=== PATIENT | male | born 1940 | race Caucasian/White ===

== ENCOUNTER → 2016-08-30 | Outpatient (CLI) | payer OTHER ==
[~2016-08-30] MED LIST: IOPAMIDOL (ISOVUE-300) 100 ML BTL IV ONE
== END ==
LOC: FIMAGING 10:28
PROVIDERS: ATTEND Specialist
DX: N40.1 Benign prostatic hyperplasia with lower urinary tract symptoms (principal); R39.89 Other symptoms and signs involving the genitourinary system; I71.4 Abdominal aortic aneurysm, without rupture; M51.26 Other intervertebral disc displacement, lumbar region; K57.32 Diverticulitis of large intestine without perforation or abscess without bleeding
CPT/HCPCS: 74178; Q9967

== ENCOUNTER → 2017-02-15 | Outpatient (CLI) | payer OTHER | LOC: FIMAGING 16:44 | PROVIDERS: ATTEND Physician Assistant Medical | DX: M51.37 Other intervertebral disc degeneration, lumbosacral region (principal); M51.36 Other intervertebral disc degeneration, lumbar region; M46.97 Unspecified inflammatory spondylopathy, lumbosacral region; M46.96 Unspecified inflammatory spondylopathy, lumbar region; M43.16 Spondylolisthesis, lumbar region ==

== ENCOUNTER 2017-03-01 15:44 | Emergency (ER) | payer OTHER ==
[2017-03-01 15:54] VITALS: TEMP 98.1
[2017-03-01] MEDS ORDERED: DEXAMETHASONE 4 MG/ML VIAL IVP ONE (17:10)
[2017-03-01] MEDS ORDERED: GABAPENTIN 300 MG CAP PO ONE (17:10)
[2017-03-01] MEDS ORDERED: DIAZEPAM 10 MG/2 ML SYR IVP ONE (17:10)
--- NOTE | 2017-03-01 17:13 | EDPHY ---
H & P Stated Complaint: low back pain/into r buttock r hip and leg/r foot numbness/ Time Seen by Provider: 03/01/17 17:12 HPI/ROS: HPI: This is a 76-year-old male who presents with Chief Complaint:low back pain/into r buttock r hip and leg/r foot numbness Location: Lower back/right hip Quality: Sharp pain Duration: 2-3 weeks Signs and Symptoms: No bleeding, + radiation, + numbness, no weakness, no tingling, no incontinence, + decreased range of motion Timing: Gradual onset, worsening Severity: Severe Context: Patient complains of lower back pain for the last 2-3 weeks accompanied by right hip pain and right ankle pain. He does have an old right ankle injury in the past. He has been followed outpatient by his primary care provider and STEFAN herrera who ordered a lumbar spine x-ray and lumbar spine CT scan on 02/15/2017; these studies were reviewed and show canal compromise moderate at L4-L5 with disc bulge and 3 mm anterior go listhesis. Canal compromise mild at L2-L3 and mild at L2 moderate at L3-L4 secondary to disc bulges. He was referred to Dr. Kessler in [place] who saw him and recommended physical therapy for 1st intervention and if this fails they would proceed with lumbar epidural steroid injections. He completed 1 day of physical therapy Sunday; able to fully participate as the pain was severe. Over the last couple days his right hip pain and right ankle pain have worsened. Yesterday he noted his right foot and ankle to be swollen. Over the last several days he has noticed numbness on the heel of his right foot as well as on the right midfoot including all 5 toes. he completed Medrol Dosepak 2 days ago, and is out of gabapentin/cyclobenzaprine. He tried taking Ultram yesterday x 2 but felt like he became lightheaded. In the past when he is taking Percocet and Vicodin he has had what appears to be near-syncope versus syncope episodes. He is very reluctant to try narcotic pain medications. He has a walker at home that he has been using to ambulate. Today he called his primary care provider who referred him to the emergency room to have his right hip, right ankle x- rays as well his is right lower extremity ultrasound to evaluate for DVT. He RT has an appointment scheduled with Dr. Kessler scheduled for March 21. 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 Surgical history: Cardiac stents Social history: Retired, . Lives in bilevel home. CONSTITUTIONAL: Pleasant elderly white male who appears to be in pain, awake and alert, no obvious distress HEENT: Atraumatic and normocephalic, PERRL, EOMI. Tympanic membranes clear. Nares patent. Oropharynx clear, no exudate and moist pink mucosa. No malocclusion. no dental trauma. Airway patent. No lymphadenopathy. NECK: supple, no midline tenderness, No meningismus. Cardiovascular: Normal S1/S2, regular rate, regular rhythm, without murmur rub or gallop. PULMONARY/CHEST: Symmetrical and nontender.Clear to auscultation bilaterally Good air movement. No accessory muscle usage. ABDOMEN: Soft, nondistended, nontender, no rebound, no guarding, no peritoneal signs, no masses or organomegaly. No CVAT. PELVIC: no pain with rocking BACK: Bilateral lumbar reproducible paraspinous muscle tenderness, no midline tenderness, no paraspinous spasm, deep tendon reflexes 2/2, + moderate pain with right straight leg raise. EXTREMITIES: 2/2 pulses, no deformities, no clubbing, no cyanosis or edema. Right hip moderate pain with internal rotation and external rotation, pain relieved with flexion. Right ankle no pitting edema; dorsiflexion 20, plantar flexion 20. No mottling noted. Decreased sensation on the right heel and top of right foot 1/2. NEUROLOGICAL: no focal neuro deficits. GCS 15. SKIN: Warm and dry, no erythema. no rash. Good capillary refill. Source: Patient, Family Exam Limitations: No limitations - Personal History Current Tetanus/Diphtheria Vaccine: Yes - Medical/Surgical History Hx Asthma: No Hx Chronic Respiratory Disease: No Hx Diabetes: No Hx Cardiac Disease: Yes Hx Renal Disease: No Hx Cirrhosis: No Hx Alcoholism: No Hx HIV/AIDS: No Hx Splenectomy or Spleen Trauma: No Other PMH: pacemaker/stents/disc prob in back - Social History Smoking Status: Never smoked Constitutional: Initial Vital Signs Temperature (C) 36.7 C 03/01/17 15:51 Heart Rate 75 03/01/17 15:51 Respiratory Rate 17 03/01/17 15:51 Blood Pressure 163/88 H 03/01/17 15:51 O2 Sat (%) 95 03/01/17 15:51 O2 Delivery Mode Room Air Allergies/Adverse Reactions: acetaminophen [From Vicodin] Allergy (Unknown, Verified 03/01/17 15:50) Other-Enter Comments hydrocodone bitartrate [From Vicodin] Allergy (Unknown, Verified 03/01/17 15:50) PASS OUT latex [Latex] Allergy (Unknown, Verified 03/01/17 15:50) Rash Qhpfgks-Qyj-Hhm Reductase Inhibitor Allergy (Unknown, Verified 03/01/17 15:50) Other-Enter Comments erythromycin base [Erythromycin Base] Allergy (Verified 03/01/17 15:50) Swelling/neck,face,throat nitroglycerin Allergy (Verified 03/01/17 15:50) Anaphylaxis Home Medications: Medication Instructions Recorded Aspirin [Aspirin 81mg (OTC)] 81 mg PO DAILY 11/26/12 Cyclobenzaprine 03/01/17 Diazepam [Valium 2 MG (*)] 2 mg PO Q8 PRN #12 tab 03/01/17 GABAPENTIN 03/01/17 Gabapentin [Neurontin 300 MG (*)] 300 mg PO HS #10 cap 03/01/17 Prednisone 03/01/17 traMADol 03/01/17 Medical Decision Making - Diagnostics Imaging Results: Imaging Impressions Ankle X-Ray 03/01/17 17:11 Impression: Normal study. RIGHT ANKLE (3 Views, at 6:34 PM): Bone mineralization is preserved. There is no acute fracture, dislocation, or mortise disruption. There is a faint well- corticated ossific density distal to the lateral malleolus, which may represent an old avulsion injury. There is minimal degenerative spurring along the undersurface of the medial malleolus. There may be partial osseous fusion at the distal tibiofibular articulation. There is some mild subcutaneous edema in the fat planes of the calf. There is a degenerative enthesophyte along the posterior calcaneus, where the Achilles tendon inserts. There is no ankle joint effusion. The subtalar joint is normal. Impression: Minor degenerative changes, with no acute osseous abnormality. Extremity Venous Study 03/01/17 17:11 Impression: There is no sonographic evidence of deep or superficial vein thrombosis in the right lower extremity. Findings were discussed with Pebbles Thomas PA-C at 18:05, on 03/01/2017. Hip X-Ray 03/01/17 17:11 Impression: Normal study. RIGHT ANKLE (3 Views, at 6:34 PM): Bone mineralization is preserved. There is no acute fracture, dislocation, or mortise disruption. There is a faint well- corticated ossific density distal to the lateral malleolus, which may represent an old avulsion injury. There is minimal degenerative spurring along the undersurface of the medial malleolus. There may be partial osseous fusion at the distal tibiofibular articulation. There is some mild subcutaneous edema in the fat planes of the calf. There is a degenerative enthesophyte along the posterior calcaneus, where the Achilles tendon inserts. There is no ankle joint effusion. The subtalar joint is normal. Impression: Minor degenerative changes, with no acute osseous abnormality. ED Course/Re-evaluation: Right hip x-ray, right ankle x-ray, right lower extremity ultrasound, IV medications ordered Given IV Decadron, IV Valium, p.o. gabapentin with moderate relief of pain 1805: Called by radiologist Dr. Greenwood who advised lower extremity ultrasound does not show any deep venous thrombosis. X-rays reviewed by mesh self and hip x-ray does not show any significant get degenerative changes; avascular necrosis. Ankle x-ray shows mild degenerative changes; ? old avulsion injury 1914: Spoke with Dr. Kessler who advises do not refill or extend the Medrol Dosepak. He is okay with a prescription for Valium and gabapentin. He advises to have the patient call his office in the a.m. for an appointment within 7 days. No signs of neurovascular compromise/tenting of skin/compartment syndrome/ extremities and joints examined above and below area of concern and are neurovascularly intact. Differential Diagnosis: Back pain including but not limited to muscular pain, herniated disc, spine fracture, intra-abdominal causes and urinary tract infection. - Data Points Medications Given: Discontinued Medications Dexamethasone (Decadron Injection) 8 mg IVP EDNOW ONE Stop: 03/01/17 17:11 Last Admin: 03/01/17 17:37 Dose: 8 mg Diazepam (Valium Injection) 5 mg IVP EDNOW ONE Stop: 03/01/17 17:11 Last Admin: 03/01/17 17:36 Dose: 5 mg Gabapentin (Neurontin) 600 mg PO EDNOW ONE Stop: 03/01/17 17:11 Last Admin: 03/01/17 17:37 Dose: 600 mg Departure - Departure Disposition: Home, Routine, Self-Care Clinical Impression: Sciatica of right side, Lumbar degenerative disc disease, Lumbar radiculopathy , right Condition: Fair Instructions: Sciatica (ED), Lumbar Radiculopathy (ED) Additional Instructions: Rest as much as possible. Use a walker to aid in ambulation. Take Valium as needed for spasms/pain. Take gabapentin at bedtime. Call Dr. Kessler office in the a.m. and advised Dr. Kessler wants to see you within 5-7 days. You are not to attend your physical therapy appointment until you worst re- evaluated by Dr. Kessler. Referrals: MAGDALENO JAMISON [Primary Care Provider] - As per Instructions Gonzalo Kessler MD [Medical Doctor] - As per Instructions Prescriptions: Diazepam [Valium 2 MG (*)] 2 mg PO Q8 PRN #12 tab PRN Reason: Spasms Gabapentin [Neurontin 300 MG (*)] 300 mg PO HS #10 cap
[2017-03-01 18:04] VITALS: RESP 16
[2017-03-01 18:47] VITALS: BP 145/82
[2017-03-01 19:36] VITALS: PULSE 76; O2SAT 94
== END 2017-03-01 19:50 | disposition home or self-care (01) ==
DX: M54.41 Lumbago with sciatica, right side (principal); M54.16 Radiculopathy, lumbar region; M51.36 Other intervertebral disc degeneration, lumbar region; I10 Essential (primary) hypertension; I25.10 Atherosclerotic heart disease of native coronary artery without angina pectoris; Z79.82 Long term (current) use of aspirin; Z95.0 Presence of cardiac pacemaker; Z95.5 Presence of coronary angioplasty implant and graft; Z91.040 Latex allergy status
CPT/HCPCS: 73502; 73610; 93971; 96374; 96375; 99285; J1100

== ENCOUNTER → 2017-03-15 | Outpatient (CLI) | payer OTHER ==
[~2017-03-15] MED LIST changes: -IOPAMIDOL (ISOVUE-300) 100 ML BTL IV ONE; +IOPAMIDOL (ISOVUE-M 200) 20 ML VIAL ONE; +LIDOCAINE 1% 300 MG/30 ML SDV ONE
== END ==
LOC: FIMAGING 09:19
PROVIDERS: ATTEND Neurological Surgery
PROC: 3E0R3KZ Introduction of Other Diagnostic Substance into Spinal Canal, Percutaneous Approach (ICD-10-PCS; principal; 2017-03-15)
DX: M51.26 Other intervertebral disc displacement, lumbar region (principal); M89.38 Hypertrophy of bone, other site; M48.061 Spinal stenosis, lumbar region without neurogenic claudication; M99.73 Connective tissue and disc stenosis of intervertebral foramina of lumbar region
CPT/HCPCS: 62302; 72132; 72265; Q9966

== ENCOUNTER 2017-04-12 09:43 | Emergency (ER) | payer OTHER ==
[2017-04-12 09:52] VITALS: RESP 18
--- NOTE | 2017-04-12 10:10 | EDPHY ---
H & P Stated Complaint: Injury to right shoulder last night. Time Seen by Provider: 04/12/17 10:06 HPI/ROS: CHIEF COMPLAINT: Right shoulder pain injury HISTORY OF PRESENT ILLNESS: 76-year-old male arrives via private vehicle complaining of acute right shoulder pain after he was building a shower chair last evening, twisting the pieces together and felt immediate pain and a "pop sensation ". He has a history of ongoing sciatica, row in the right lower extremity, followed by Dr. wen, has been ambulating exclusively with a walker. Because of his acute right shoulder injury he is no longer able to walk with his walker and bear weight on the right shoulder therefore. PRIMARY CARE PROVIDER: REVIEW OF SYSTEMS: A ten point review of systems was performed and is negative with the exception of the items mentioned in the HPI PAST MEDICAL/SURGICAL HISTORY: no anticoagulant use, cardiac stenting. Pacemaker. Chronic right lower extremity sciatica. SOCIAL HISTORY: Lives with his in a bilevel home PHYSICAL EXAM 1) GENERAL: Well-developed, well-nourished, alert and oriented. Appears uncomfortable specially when asked to move his right shoulder Answering questions appropriately. 2) HEAD: Normocephalic, atraumatic 3) HEENT: Pupils equal, round, reactive to light bilaterally. 4) NECK: No cervical collar is on. Posterior cervical spine is nontender, no stepoff, no effusion. Full range of motion which does not elicit any midline cervical spine pain, no posterior midline tenderness, no step-off. 5) LUNGS: Clear to auscultation bilaterally, no wheezes, no rhonchi, no retractions. No obvious signs of trauma. No chest wall pain. No flaring, no grunting. Moving symmetrically. No crepitus. 6) HEART: Regular rate and rhythm, 7) ABDOMEN: No guarding, no rebound, no focal tenderness, no peritoneal signs, no signs of trauma, no ecchymosis 8) MUSCULOSKELETAL: Right upper extremity: No visible signs of trauma, tender to palpation anterolateral aspect of shoulder reproducible with palpation and range of motion. Normal coloration temperature. No effusion. Right upper extremity has normal neurovascular examination. Otherwise, Moving all extremities, no focal areas of tenderness, no obvious trauma. 9) BACK: No midline vertebral tenderness, no fluctuance, no step-off, no obvious trauma, no visual or palpable abnormality. 10) SKIN: No laceration. No abrasion DIFFERENTIAL DIAGNOSIS: [in no particular include but limited to fracture, dislocation, sprain, strain - Personal History Current Tetanus Diphtheria and Acellular Pertussis (TDAP): Unsure - Medical/Surgical History Hx Asthma: No Hx Chronic Respiratory Disease: No Hx Diabetes: No Hx Cardiac Disease: Yes Hx Renal Disease: No Hx Cirrhosis: No Hx Alcoholism: No Hx HIV/AIDS: No Hx Splenectomy or Spleen Trauma: No Other PMH: pacemaker/stents/disc prob in back - Social History Smoking Status: Never smoked Constitutional: Initial Vital Signs Temperature (C) 36.4 C 04/12/17 09:45 Heart Rate 65 04/12/17 09:45 Respiratory Rate 18 04/12/17 09:45 Blood Pressure 143/77 H 04/12/17 09:45 O2 Sat (%) 93 04/12/17 09:45 O2 Delivery Mode Room Air Allergies/Adverse Reactions: acetaminophen [From Vicodin] Allergy (Unknown, Verified 03/01/17 15:50) Other-Enter Comments hydrocodone bitartrate [From Vicodin] Allergy (Unknown, Verified 03/01/17 15:50) PASS OUT latex [Latex] Allergy (Unknown, Verified 03/01/17 15:50) Rash Jxkyzpi-Scp-Cyh Reductase Inhibitor Allergy (Unknown, Verified 03/01/17 15:50) Other-Enter Comments erythromycin base [Erythromycin Base] Allergy (Verified 03/01/17 15:50) Swelling/neck,face,throat nitroglycerin Allergy (Verified 03/01/17 15:50) Anaphylaxis Home Medications: Medication Instructions Recorded Aspirin [Aspirin 81mg (OTC)] 81 mg PO DAILY 11/26/12 Cyclobenzaprine 03/01/17 Diazepam [Valium 2 MG (*)] 2 mg PO Q8 PRN #12 tab 03/01/17 GABAPENTIN 03/01/17 Gabapentin [Neurontin 300 MG (*)] 300 mg PO HS #10 cap 03/01/17 Diazepam [Valium 5 MG (*)] 2.5 mg PO TID PRN #15 tab 04/12/17 Medical Decision Making - Diagnostics Imaging Results: Imaging Impressions Shoulder X-Ray 04/12/17 09:54 Impression: 1. No acute fracture. 2. Osteoarthritis and probable impingement upon the rotator cuff. Images reviewed by myself ED Course/Re-evaluation: 10:50 a.m.: Consultation with the ER shoe parts caser. No evidence of fracture dislocation on x-ray. Doubt septic arthritis. We discussed limitations of x- ray. Recommend orthopedic follow-up as he may necessitate further outpatient imaging. 1:45 a.m.: The shoe parts caser has spent significant time consulting with this patient and spoke with myself. Have offered admission for physical therapy, pain management however he would like to be discharged home, feels comfortable being discharged home. He has been given a sling, he will follow up with Dr. Kirk Puente his orthopedic surgeon for his shoulder injury. He follow up with Dr. Lukasz wen for his chronic radiculopathy in the right lower extremity. He requests Valium as his analgesics of choice. Usual customary benzodiazepine precautions instructions provided. He has been informed that he is more than welcome to return to the ER at any point for re-evaluation or fetid not feel safe at home.Care of patient under supervision of secondary supervising physician Dr Sanches with whom I discussed case . - Data Points Medications Given: Discontinued Medications Cyclobenzaprine HCl (Flexeril) 5 mg PO EDNOW ONE Stop: 04/12/17 10:51 Last Admin: 04/12/17 10:54 Dose: 5 mg Diazepam (Valium Injection) 5 mg IVP EDNOW ONE Stop: 04/12/17 10:47 Last Admin: 04/12/17 10:59 Dose: Not Given Diazepam (Valium) 2 mg PO EDNOW ONE Stop: 04/12/17 10:51 Last Admin: 04/12/17 11:12 Dose: 2 mg Ketorolac Tromethamine (Toradol) 30 mg IVP EDNOW ONE Stop: 04/12/17 10:46 Last Admin: 04/12/17 10:59 Dose: Not Given Departure - Departure Disposition: Home, Routine, Self-Care Clinical Impression: Lumbar back pain with radiculopathy affecting right lower extremity Sprain of right shoulder Qualifiers: Encounter type: initial encounter Shoulder sprain type: unspecified sprain Qualified Code(s): S43.401A - Unspecified sprain of right shoulder joint, initial encounter Condition: Good Instructions: Shoulder Sprain (ED) Additional Instructions: If at any point you do not feel safe at home or do not feel you are able to care for yourself return to the ER for re-evaluation. Case Management: Carli Joseph PT has been contacted regarding your out patient physical therapy. They have referred you to [facility] for home health Physical and Occupational Therapy: [facility] will be contacting you to schedule an initial home health visit for tomorrow 04/13/17. You may call them at with any questions. You DO NOT need to call them to schedule your home health visits. They will contact you for scheduling Referrals: Gonzalo Kessler MD [Medical Doctor] - 2-3 days, call for appt. Kirk Puente MD [Medical Doctor] - 2-3 days, call for appt. Prescriptions: Diazepam [Valium 5 MG (*)] 2.5 mg PO TID PRN #15 tab PRN Reason: Spasms
[2017-04-12] MEDS ORDERED: KETOROLAC 30 MG/1 ML SDV IVP ONE (10:45)
[2017-04-12] MEDS ORDERED: DIAZEPAM 10 MG/2 ML SYR IVP ONE (10:46)
[2017-04-12] MEDS ORDERED: CYCLOBENZAPRINE 10 MG TAB PO ONE (10:50)
[2017-04-12] MEDS ORDERED: DIAZEPAM 2 MG TAB PO ONE (10:50)
[2017-04-12 12:23] VITALS: BP 132/60; PULSE 68; TEMP 98.1; O2SAT 95
--- NOTE | 2017-04-12 16:18 | ASMTCMCOM ---
CM Note CM Note Notes: Patient presents to the ER with his with c/o R shoulder pain s/p twisting it last night while trying to put together a shower chair. Patient is currently seeing Dr. Poe for a chronic back injury and is current with [facility] in [place]. Elvis lives in a bi-level home, uses a walker as needed to ambulate due to his back pain and "sciatica" and is concerned about his activity level at home now that his shoulder is injured I discussed potential options with patient and his , for HH PT/OT vs SNF. Patient is reluctant to consider SNF due to concerns about being comfortable with sleeping, etc. Patient has a couch and recliner at home that he has adjusted to for sitting/sleeping and this is his biggest concern. I expressed my concerns for safety in regard to ambulating up and down stairs and whether patient would be able to stay on 1 level as much as possible. Patient states that he can do this other than going up/down to shower. After spending quite some time with patient, he feels that going home with HH support is his preffered option. I have reached out to [facility] and received a referral for [facility] . Referral has been faxed and patient is accepted for HH PT/OT services to start tomorrow. Patient and his are in agreement of this plan and would like to try and manage at home with supportive care. Chay Ortiz PT will suspend OP PT visits at this time and follow along with HH PT/OT services for follow up Date Signed: 04/12/2017 04:17 PM Electronically Signed By:Perri Centeno RN
== END 2017-04-12 12:23 | disposition home or self-care (01) ==
DX: S43.401A Unspecified sprain of right shoulder joint, initial encounter (principal); X50.9XXA Other and unspecified overexertion or strenuous movements or postures, initial encounter; Y93.89 Activity, other specified; Z95.0 Presence of cardiac pacemaker; Z91.040 Latex allergy status; Z79.82 Long term (current) use of aspirin; M54.16 Radiculopathy, lumbar region
CPT/HCPCS: 73030; 99283; A4565

== ENCOUNTER → 2017-04-19 | Outpatient (CLI) | payer OTHER | LOC: FIMAGING 13:05 | PROVIDERS: ATTEND Physician Assistant | DX: M43.16 Spondylolisthesis, lumbar region (principal); I71.4 Abdominal aortic aneurysm, without rupture ==

== ENCOUNTER 2017-05-22 10:10 | Inpatient (IN) | payer OTHER ==
[~2017-05-22 10:10] MED LIST changes: +ACETAMINOPHEN 500 MG TAB PO ONE; -IOPAMIDOL (ISOVUE-M 200) 20 ML VIAL ONE; -LIDOCAINE 1% 300 MG/30 ML SDV ONE; +PREGABALIN 75 MG CAP PO ONE; +ceFAZolin 2 GM/DEXTROSE 100 ML IV ONE
[2017-05-22] MEDS ORDERED: CHLORHEXIDINE GLUC HIBICLENS 118 ML BTL TP ONE (11:00)
[2017-05-22] MEDS ORDERED: BUPIVACAINE 0.25% 30 ML SDV ONE (11:00)
[2017-05-22] MEDS ORDERED: BACITRACIN ZINC 14.2 GM OINTTUBE TP ONE (11:00)
[2017-05-22] MEDS ORDERED: THROMBIN (BOVINE) 5,000 UNIT VIAL TP ONE (11:01)
[2017-05-22] MEDS ORDERED: BACITRACIN 50,000 UNITS/10 ML SYR IRR ONE (11:01)
[2017-05-22] MEDS ORDERED: LR 1,000 ML IV ONE (11:05)
--- NOTE | 2017-05-22 11:16 | PDHPUP ---
History & Physical Update H&P update statement: This history and physical update is based on an assessment of the patient which was completed after admission or registration (within 24 hours), but prior to the surgery/procedure. Pt continues to have right leg pain, primarily in the lateral ankle. He denies any weakness. The pain can radiate up into his calf at times. He also copmlains of some right sided pain just below his ribs that he thinks is an aggravated chronic pain from sitting in the chair and being too immobile of late. H&P update: no change in patient's condition since H&P completed
[2017-05-22] MEDS ORDERED: ceFAZolin 2 GM/SWFI 20 ML SYR IVP ONE (11:22)
[2017-05-22] MEDS ORDERED: ACETAMINOPHEN 500 MG TAB ONE (11:22)
[2017-05-22] MEDS ORDERED: PREGABALIN 75 MG CAP PO ONE (11:45)
--- NOTE | 2017-05-22 13:29 | PDANEPAE ---
ANE Past Medical History - Cardiovascular History Hx Hypertension: No Hx Arrhythmias: Yes Hx Chest Pain: No Hx Coronary Artery / Peripheral Vascular Disease: Yes Hx CHF / Valvular Disease: No Hx Palpitations: No Cardiovascular History Comment: bradycardia - Pulmonary History Hx COPD: No Hx Asthma/Reactive Airway Disease: Yes Hx Recent Upper Respiratory Infection: No Hx Oxygen in Use at Home: No Hx Sleep Apnea: No Sleep Apnea Screening Result - Last Documented: Positive Pulmonary History Comment: mild - Neurologic History Hx Cerebrovascular Accident: No Hx Seizures: No Hx Dementia: No - Endocrine History Hx Diabetes: No Hypothyroid: No Hyperthyroid: No Obesity: no Endocrine History Comment: pt has hypoglycemic issues - Renal History Hx Renal Disorders: No - Liver History Hx Hepatic Disorders: No - Neurological & Psychiatric Hx Hx Neurological and Psychiatric Disorders: Yes - Cancer History Hx Cancer: No Cancer History Comment: skin cancer - Congenital Disorder History Hx Congenital Disorders: No - GI History GERD: no Hx Gastrointestinal Disorders: Yes Gastrointestinal History Comment: mild IBS - Other Health History Other Health History: none - Chronic Pain History Chronic Pain: Yes (sciatica) - Surgical History Prior Surgeries: none ANE Review of Systems Review of Systems: - Exercise capacity METS (RN): 2 METS - Pacemaker Pacemaker Type: Bi-Ventricular Pacemaker Silo Worker: [employer] Pacemaker Model: EVIA DR-T Pacemaker Mode: DDD Pacemaker Set Rate: 60 Date Pacemaker Last Checked: 05/22/2017 ANE Patient History - Allergies Allergies/Adverse Reactions: erythromycin base [Erythromycin Base] Allergy (Severe, Verified 05/14/17 12:52) Swelling/neck,face,throat hydrocodone bitartrate [From Vicodin] Allergy (Severe, Verified 05/14/17 12:52) PASS OUT nitroglycerin Allergy (Severe, Verified 05/14/17 12:52) Anaphylaxis gabapentin Allergy (Intermediate, Verified 05/14/17 12:55) Other-Enter Comments latex [Latex] Allergy (Intermediate, Verified 05/14/17 12:52) Rash oxycodone [From Percocet] Allergy (Intermediate, Verified 05/14/17 12:55) Other-Enter Comments Isjpyjm-Feq-Udh Reductase Inhibitor Allergy (Intermediate, Verified 05/14/17 12: 52) Other-Enter Comments tramadol Allergy (Mild, Verified 05/14/17 12:55) Vomiting - Home Medications Home Medications: Aspirin [Aspirin 81mg (OTC)] 81 mg PO DAILY PRN 11/26/12 [Last Taken 05/19/17] Diazepam [Valium 5 MG (*)] 2.5 - 5 mg PO BID PRN 05/08/17 [Last Taken 05/22/17 07:00] Ibuprofen [Motrin (*)] 200 mg PO Q4-6PRN PRN 05/08/17 [Last Taken 05/15/17] ACETAMINOPHEN 500 05/22/17 [Last Taken 05/22/17 06:00] - NPO status NPO Since - Liquids (Date): 05/21/17 NPO Since - Liquids (Time): 23:15 NPO Since - Solids (Date): 05/21/17 NPO Since - Solids (Time): 23:00 - Anes Hx Anes Hx: no prior problems - Smoking Hx Smoking Status: Never smoked Marijuana use: No - Family Anes Hx Family Anes Hx: none Family Hx Anesthesia Complications: none ANE Labs/Vital Signs - Vital Signs Blood Pressure: 132/83 Heart Rate: 64 Respiratory Rate: 14 O2 Sat (%): 90 Height: 172.72 cm Weight: 86.183 kg ANE Physical Exam - Airway Neck exam: FROM Mallampati Score: Class 3 Mouth exam: normal dental/mouth exam - Pulmonary Pulmonary: no respiratory distress, no rales or rhonchi, clear to auscultation - Cardiovascular Cardiovascular: regular rate and rhythym, no murmur, rub, or gallop - ASA Status ASA Status: III ANE Anesthesia Plan Anesthesia Plan: general endotracheal anesthesia
[2017-05-22] MEDS ORDERED: PROPOFOL 200 MG/20 ML VIAL ONE (13:57)
[2017-05-22] MEDS ORDERED: REMIFENTANIL HCL 1 MG VIAL ONE (13:57)
[2017-05-22] MEDS ORDERED: fentaNYL 100 MCG/2 ML INJ ONE ×3 (13:57→18:31)
[2017-05-22] MEDS ORDERED: PROPOFOL/EMULSION 500 MG/50 ML BOTTLE IV ONE (13:57)
[2017-05-22] MEDS ORDERED: ROCURONIUM 50 MG/5 ML VIAL ONE ×2 (13:58→14:38)
[2017-05-22] MEDS ORDERED: LIDOCAINE 2% 5 ML SDV ONE (13:59)
[2017-05-22] MEDS ORDERED: DEXAMETHASONE 4 MG/ML VIAL ONE (13:59)
[2017-05-22] MEDS ORDERED: PHENYLEPHRINE HCL 100 MCG/ML SYR ONE (14:03)
[2017-05-22] MEDS ORDERED: SURGIFLO MATRIX KIT WITH THROMBIN 8ml TP ONE (14:21)
[2017-05-22] MEDS ORDERED: ACETAMINOPHEN 500 MG TAB PO PRN (14:54)
[2017-05-22] MEDS ORDERED: ALBUTEROL 3 ML DEYVIAL IH PRN (14:54)
[2017-05-22] MEDS ORDERED: LR 500 ML IV PRN (14:54)
[2017-05-22] MEDS ORDERED: PROMETHAZINE HCL 25 MG/ML INJ IVP PRN (14:54)
[2017-05-22] MEDS ORDERED: NALOXONE HCL 0.4 MG/ML INJ IVP PRN (14:54)
[2017-05-22] MEDS ORDERED: ONDANSETRON 4 MG/2 ML VIAL IVP PRN ×2 (14:54→16:39)
[2017-05-22] MEDS ORDERED: BUPIVACAINE 0.5% 30 ML SDV ONE (15:54)
[2017-05-22] MEDS ORDERED: SUGAMMADEX SODIUM 500 MG/5 ML VIAL IVP ONE (16:07)
[2017-05-22] MEDS ORDERED: KETOROLAC 30 MG/1 ML SDV ONE (16:10)
--- NOTE | 2017-05-22 16:37 | POSTOPPROG ---
Post Op Note Date of Operation: 05/22/17 Surgeon: Lele Lyn Helper/Driver: Lele Lyn Anesthesiologist: pasha Tobin Anesthesia: GET(General Endotracheal) Pre-op Diagnosis: lumbar stenosis with radiculopathy Post-op Diagnosis: same Indication: irretractable pain and inability to bear weight Procedure: L45 laminectomy and Right sided JOSE EDUARDO Findings: HNP Inf/Abcess present in the surg proc area at time of surgery?: No Depth: Organ Space EBL: Minimal Drains: Marek [place]
[2017-05-22] MEDS ORDERED: ONDANSETRON DISINTEGRATING 4 MG TAB PO PRN (16:39)
[2017-05-22] MEDS ORDERED: POLYETHYLENE GLYCOL 3350 17 GM PKT PO PRN (16:39)
[2017-05-22] MEDS ORDERED: HYDROmorphone HCL/NS/PF 0.4 MG/2 ML SYR IVP PRN (16:39)
[2017-05-22] MEDS ORDERED: diphenhydrAMINE 25 MG CAP PO PRN (16:39)
[2017-05-22] MEDS ORDERED: BISACODYL 10 MG SUPP PR PRN (16:39)
[2017-05-22] MEDS ORDERED: MAGNESIUM HYDROXIDE 30 ML UDCUP PO PRN (16:39)
[2017-05-22] MEDS ORDERED: LACTULOSE 20 GM/30 ML UDCUP PO PRN (16:39)
[2017-05-22] MEDS ORDERED: NS W/ 20 KCl/L 1,000 ML IV SCH (16:45)
[2017-05-22] MEDS ORDERED: DIAZEPAM 5 MG TAB PO PRN (16:49)
--- NOTE | 2017-05-22 16:58 | NEUSURGPN ---
Date of Surgery: 05/22/17 Post Op Day: 0 Assessment/Plan: 76M s/p L45 laminectomy and R sided JOSE EDUARDO who has been 10+ weeks in a debilitated state d/t pain -admit to floor -advance diet as tolerated -pain control, minimize narcotics if possible -PT/OT to eval and treat; educate and make disposition recommendations -JPx1 likely until discharge unless output minimal -DVT ppx -TEDs SCD's, lovenox POD#1 -please call NS with any questions/concerns. Dw Dr. Kessler Subjective: groggy, post anesthesia, no c/o pain Objective: NAD, VSS Alert cnii-xii grossly intact EOMI, PEARLA MAEx4, 5/= SILT Incision c/d/i, dressed JPx1 - Physician Discussed Patient with : [facility] Physical Exam - Vitals, I&O, Labs I and O 05/21/17 05/22/17 05/23/17 05:59 05:59 05:59 Weight 86.183 kg Vital Signs Temp Pulse Resp BP Pulse Ox 36.9 C 64 11 L 148/93 H 98 05/22/17 10:48 05/22/17 14:53 05/22/17 16:46 05/22/17 16:46 05/22/17 16:46 ICD10 Worksheet Patient Problems: Problems Problem Status Onset Lumbar spinal stenosis Acute - ICD10 Problem Qualifiers (1) Lumbar spinal stenosis Qualifiers: Neurogenic claudication status: unspecified Qualified Code(s): M48.061 - Spinal stenosis, lumbar region without neurogenic claudication
[2017-05-22] MEDS ORDERED: ONDANSETRON 4 MG/2 ML VIAL ONE (17:04)
[2017-05-22] MEDS: fentaNYL 100 MCG/2 ML INJ IVP PRN ×3 (17:08→18:34)
--- NOTE | 2017-05-22 18:09 | POSTANESTH ---
Post Anesthetic Evaluation Cardiovascular Status: Normal, Stable Respiratory Status: Normal, Stable Level of Consciousness/Mental Status: Can Participate in Eval Pain Control: Adequate, Prn Tx Ordered Nausea/Vomiting Control: Adequate, Prn Tx Ordered Complications Possibly Related to Anesthesia: None Noted
[2017-05-22] MEDS: FAMOTIDINE 20 MG TAB PO SCH (20:03)
[2017-05-22] MEDS: SENNOSIDES/DOCUSATE SODIUM TAB PO SCH (20:03)
[2017-05-22] MEDS: METHOCARBAMOL 750 MG TAB PO PRN (20:03)
[2017-05-22] MEDS: oxyCODONE IR 5 MG TAB PO PRN (20:03)
[2017-05-22] MEDS: ACETAMINOPHEN 500 MG TAB PO SCH (21:15)
[2017-05-22] MEDS: PREGABALIN 75 MG CAP PO SCH (21:16)
[2017-05-22] MEDS ORDERED: ceFAZolin 2 GM/DEXTROSE 100 ML IV SCH (22:00)
[2017-05-22] MEDS: ceFAZolin 2 GM/SWFI 2 GM/20 ML SYR IVP SCH (23:19)
[2017-05-23] MEDS: ACETAMINOPHEN 500 MG TAB PO SCH ×3 (05:26→22:06)
[2017-05-23] MEDS: ceFAZolin 2 GM/SWFI 2 GM/20 ML SYR IVP SCH (05:27)
--- NOTE | 2017-05-23 08:20 | NEUSURGPN ---
Date of Surgery: 05/22/17 Post Op Day: 1 Assessment/Plan: 76M s/p L45 laminectomy and R sided JOSE EDUARDO who has been 10+ weeks in a debilitated state d/t pain -pain control, minimize narcotics if possible -Mobilize today -PT/OT to eval and treat; educate and make disposition recommendations -JPx1 likely until discharge unless output minimal -DVT ppx -TEDs SCD's, lovenox POD#1 -please call NS with any questions/concerns. Dw Dr. Kessler Subjective: Doing well. Not a great deal of back pain. 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 Objective: NAD, VSS AAOx3 EOMI, PEARLA cnii-xii grossly intact MAEx4, 5/5 except R DF 4+/5 compared to right SILT JPX1 110mL out overnight Urinary Catheter in Place: No - Physician Discussed Patient with : [facility] Physical Exam - Vitals, I&O, Labs I and O 05/22/17 05/23/17 05/24/17 05:59 05:59 05:59 Intake Total 2830 Output Total 420 Balance 2410 Weight 86.183 kg Intake: Oral (ml) 830 IV Intake (ml) 2000 Output: Urine (ml) 275 Urinal 275 Estimated Blood Loss (ml) 35 SJ Drain Output (ml) 110 #1 Left Back Marek 110 East Other: Intake Quantity Yes Sufficient Number of Voids Incontinence 1 Vital Signs Temp Pulse Resp BP Pulse Ox 36.4 C 75 16 101/75 96 05/23/17 07:42 05/23/17 07:42 05/23/17 07:42 05/23/17 07:42 05/23/17 07:42 ICD10 Worksheet Patient Problems: Problems Problem Status Onset Lumbar spinal stenosis Acute - ICD10 Problem Qualifiers (1) Lumbar spinal stenosis Qualifiers: Neurogenic claudication status: unspecified Qualified Code(s): M48.061 - Spinal stenosis, lumbar region without neurogenic claudication
[2017-05-23] MEDS: PREGABALIN 75 MG CAP PO SCH ×3 (09:14→22:07)
[2017-05-23] MEDS: SENNOSIDES/DOCUSATE SODIUM TAB PO SCH ×2 (09:14→22:07)
[2017-05-23] MEDS: ENOXAPARIN 40 MG/0.4 ML SYR SC SCH (09:14)
[2017-05-23] MEDS: FAMOTIDINE 20 MG TAB PO SCH ×2 (09:14→22:07)
[2017-05-23] MEDS: oxyCODONE IR 5 MG TAB PO PRN (10:22)
[2017-05-23] MEDS: METHOCARBAMOL 750 MG TAB PO PRN (10:23)
[2017-05-23] MEDS ORDERED: FLU VACC QS 2017-18 (3YR+)/PF 0.5 ML SYR (FLUARIX QUAD) IM ONE (12:09)
[2017-05-23] MEDS ORDERED: PNEUMOC 13-VAL CONJ-DIP CRM/PF 0.5 ML SYR IM ONE (12:09)
--- NOTE | 2017-05-23 14:50 | ASMTCMCOM ---
CM Note CM Note Notes: Patient is POD #1 L4-5 laminectomy and R sided JOSE EDUARDO. I met with patient, and daughter to discuss discharge planning. I explained options of homecare, SNF, and inpatient rehab. Patient is currently open to [facility], but it is unclear what services he gets from them. It sounds like it might be a social service manager. He is open to the idea of PT/OT, but it seems like his family might think that he needs rehab. Current PT/OT recs are SNF or inpatient rehab. I told patient and his family that we could continue to asses his needs, and I encouraged them to follow up with Dr Kessler who told them that patient would need "6 weeks of rehab," although it was unspecified what kind. Current Case Management d/c plan: TBD Date Signed: 05/23/2017 02:50 PM Electronically Signed By:Juana Chua RN
[2017-05-24] MEDS: ACETAMINOPHEN 500 MG TAB PO SCH ×3 (05:34→21:01)
[2017-05-24] MEDS: PREGABALIN 75 MG CAP PO SCH ×3 (10:36→21:00)
[2017-05-24] MEDS: FAMOTIDINE 20 MG TAB PO SCH ×2 (10:36→21:00)
[2017-05-24] MEDS: SENNOSIDES/DOCUSATE SODIUM TAB PO SCH ×2 (10:37→21:01)
[2017-05-24] MEDS: ENOXAPARIN 40 MG/0.4 ML SYR SC SCH (10:37)
--- NOTE | 2017-05-24 13:04 | NEUSURGPN ---
Assessment/Plan: Assessment/Plan: 76M s/p L45 laminectomy and R sided JOSE EDUARDO who has been 10+ weeks in a debilitated state d/t pain -pain control, minimize narcotics if possible -Mobilize more with PT.OT today -PT/OT recommending SNF or rehba placement as he is fairly deconditioned. He will need to stay until Sunday to qualify for this -JPx1 likely until discharge unless output minimal -DVT ppx -TEDs SCD's, lovenox -please call NS with any questions/concerns. Dw Dr. Kessler Subjective: Doing well, has incisional pain as expected but is excited that he had no leg pain when he got up to go to the bathroom in the middle of the night. Objective: NAD, VSS AAOx3 EOMI, PEARLA cnii-xii grossly intact MAEx4, 5/5 except R DF 4+/5 compared to right SILT JPX1- 50 out overnight - Physician Discussed Patient with : [facility] Physical Exam - Vitals, I&O, Labs I and O 05/23/17 05/24/17 05/25/17 05:59 05:59 05:59 Intake Total 2830 725 340 Output Total 420 550 50 Balance 2410 175 290 Weight 86.183 kg Intake: Oral (ml) 830 500 340 IV Intake (ml) 2000 IV Infused (ml) 225 NS W/ 20 KCl/L 1,000 ml @ 225 75 mls/hr IV CONT RITESH Rx #:[id number] Output: Urine (ml) 275 500 Urinal 275 500 Estimated Blood Loss (ml) 35 SJ Drain Output (ml) 110 50 50 #1 Left Back Marek 110 50 50 East Other: Intake Quantity Yes Yes Yes Sufficient Number of Voids Incontinence 1 1 Toilet 1 1 Urinal 1 Vital Signs Temp Pulse Resp BP Pulse Ox 36.6 C 80 16 106/63 91 L 05/24/17 12:00 05/24/17 12:00 05/24/17 12:00 05/24/17 12:00 05/24/17 12:00 ICD10 Worksheet Patient Problems: Problems Problem Status Onset Lumbar spinal stenosis Acute
[2017-05-24] MEDS: METHOCARBAMOL 750 MG TAB PO PRN ×2 (13:27→21:01)
--- NOTE | 2017-05-24 16:11 | ASMTCMCOM ---
CM Note CM Note Notes: Per PT/OT, patient would benefit from SNF. I spoke to him about this, and he agrees, although he is reluctant because his daughter and grandchild are here visiting from [place] for the holidays. He wanted to speak with them this afternoon and then follow up with Case Management. In the meantime, we talked about SNFs and decided that I would send referrals to [facility] and [facility]. These have been sent. Case Management will follow up with patient tomorrow. Current CM Discharge plan: SNF (facility TBD) Date Signed: 05/24/2017 04:11 PM Electronically Signed By:Juana Chua RN
[2017-05-24] MEDS: oxyCODONE IR 5 MG TAB PO PRN ×2 (16:57→21:00)
[2017-05-25] MEDS: ACETAMINOPHEN 500 MG TAB PO SCH ×3 (05:20→21:55)
[2017-05-25] MEDS: oxyCODONE IR 5 MG TAB PO PRN ×3 (05:20→20:50)
[2017-05-25] MEDS: METHOCARBAMOL 750 MG TAB PO PRN ×2 (05:20→20:50)
--- NOTE | 2017-05-25 07:42 | NEUSURGPN ---
Assessment/Plan: 76M s/p L45 laminectomy and R sided JOSE EDUARDO who has been 10+ weeks in a debilitated state d/t pain -pain control, minimize narcotics if possible -PT/OT -PT/OT recommending SNF or rehba placement as he is fairly deconditioned. -JPx1 likely until discharge unless output minimal -DVT ppx -TEDs SCD's, lovenox -please call NS with any questions/concerns. -Dispo planning once bed available at [facility] -Discussed with Dr. Kessler -Please notify NS with any change in neuro/motor exam Subjective: Sciatica leg pain improved. low back/incisional site pain Objective: NAD AOx3 MAEx4, dressing c/d/i - Physician Discussed Patient with : [facility] Physical Exam - Vitals, I&O, Labs I and O 05/24/17 05/25/17 05/26/17 05:59 05:59 05:59 Intake Total 725 1690 Output Total 550 80 Balance 175 1610 Intake: Oral (ml) 500 1690 IV Infused (ml) 225 NS W/ 20 KCl/L 1,000 ml @ 225 75 mls/hr IV CONT RITESH Rx #:[id number] Output: Urine (ml) 500 Urinal 500 SJ Drain Output (ml) 50 80 #1 Left Back Marek 50 80 East Other: Intake Quantity Yes Yes Sufficient Number of Voids Incontinence 1 Toilet 1 1 Urinal 1 Number of Stools Toilet 1 Vital Signs Temp Pulse Resp BP Pulse Ox 36.6 C 67 16 101/68 90 L 05/25/17 00:00 05/25/17 00:00 05/25/17 00:00 05/25/17 00:00 05/25/17 00:00 ICD10 Worksheet Patient Problems: Problems Problem Status Onset Lumbar spinal stenosis Acute
[2017-05-25] MEDS: ENOXAPARIN 40 MG/0.4 ML SYR SC SCH (08:40)
[2017-05-25] MEDS: PREGABALIN 75 MG CAP PO SCH ×3 (08:40→21:55)
[2017-05-25] MEDS: FAMOTIDINE 20 MG TAB PO SCH ×2 (08:41→20:50)
[2017-05-25] MEDS: SENNOSIDES/DOCUSATE SODIUM TAB PO SCH ×2 (08:42→20:50)
--- NOTE | 2017-05-25 10:20 | ASMTCMCOM ---
CM Note CM Note Notes: Chart reviewed. Met with patient briefly as he had visitors. He states his preference of SNF would be [facility] ([facility] have no male bed) and secondly [facility]. He states he has some reservations about other facilities but will have his and daughter fo see [facility]. Spoke to [facility] who confirms they have available bed and could take patient when medically cleared for discharge. CM to follow. Date Signed: 05/25/2017 10:20 AM Electronically Signed By:Argenis Macias RN
[2017-05-25 22:37] VITALS: O2SAT 94
[2017-05-26] MEDS: ACETAMINOPHEN 500 MG TAB PO SCH ×2 (06:00→14:27)
[2017-05-26] MEDS: oxyCODONE IR 5 MG TAB PO PRN ×2 (06:01→14:27)
--- NOTE | 2017-05-26 08:10 | NEUSURGPN ---
Assessment/Plan: Assessment/Plan: 76M s/p L45 laminectomy and R sided JOSE EDUARDO who has been 10+ weeks in a debilitated state d/t pain -pain control, minimize narcotics if possible -PT/OT -he is wiling o dc to SNF or rehab for placement today since he is fairly deconditioned. -JPx1 - will dc this morning -DVT ppx -TEDs SCD's, lovenox -please call NS with any questions/concerns. -Please notify NS with any change in neuro/motor exam Subjective: Sciatica leg pain improved. low back/incisional site pain Objective: NAD AOx3 MAEx4, dressing c/d/i Urinary Catheter in Place: No Neurosurgery Physical Exam - Vitals, I&O, Labs I and O 05/25/17 05/26/17 05/27/17 05:59 05:59 05:59 Intake Total 1690 1500 Output Total 80 40 Balance 1610 1460 Intake: Oral (ml) 1690 1500 Output: SJ Drain Output (ml) 80 40 #1 Left Back Marek 80 40 East Other: Intake Quantity Yes Sufficient Number of Voids Toilet 1 1 Number of Stools Toilet 1 1 Vital Signs Temp Pulse Resp BP Pulse Ox 36.3 C 70 16 127/69 H 94 05/25/17 22:37 05/25/17 22:37 05/25/17 22:37 05/25/17 22:37 05/25/17 22:37 ICD10 Worksheet Patient Problems: Problems Problem Status Onset Lumbar spinal stenosis Acute
[2017-05-26] MEDS: ENOXAPARIN 40 MG/0.4 ML SYR SC SCH (08:48)
[2017-05-26] MEDS: PREGABALIN 75 MG CAP PO SCH (08:49)
[2017-05-26] MEDS: FAMOTIDINE 20 MG TAB PO SCH (08:49)
[2017-05-26] MEDS: SENNOSIDES/DOCUSATE SODIUM TAB PO SCH (08:49)
[2017-05-26 09:21] VITALS: BP 141/79; PULSE 68; RESP 12; TEMP 97.5
--- NOTE | 2017-05-26 13:23 | PDIAF ---
- Diagnosis Diagnosis: spinal stenosis w/ radiculopathy and deconditioning. Code Status: Full Code - Medication Management Discharge Medications: Medications to Continue on Transfer Aspirin [Aspirin 81mg (*)] 81 mg PO Q2D PRN 11/26/12 [Last Taken 05/19/17] Ibuprofen [Motrin (*)] 200 mg PO Q4-6PRN PRN 05/08/17 [Last Taken 05/15/17] Acetaminophen [Tylenol ES 500 mg (*)] 500 mg PO Q6 05/22/17 [Last Taken 06:00] Acetaminophen [Tylenol ES 500 mg (*)] 1,000 mg PO Q8HRS tab 05/26/17 [Last Taken Unknown] Diazepam [Valium 5 MG (*)] 2.5 - 5 mg PO Q6HRS PRN tab 05/26/17 [Last Taken Unknown] Methocarbamol [Robaxin 750 mg (*)] 750 mg PO QID PRN tab 05/26/17 [Last Taken Unknown] Polyethylene Glycol 3350 [Miralax 17 gm (*)] 17 gm PO DAILY PRN pkt 05/26/17 [ Last Taken Unknown] Sennosides/Docusate Sodium [Senokot-S] 1 - 2 tab PO BID tab 05/26/17 [Last Taken Unknown] oxyCODONE IR [Oxycodone Ir (*)] 5 - 10 mg PO Q4HRS PRN tab 05/26/17 [Last Taken Unknown] Discharge Medications: Refer to the Discharge Home Medication list for PRN reason. PICC Care - Routine: N/A - Orders Services needed: Registered Nurse, Certified Sole Ruffer, Physical Therapy, Occupational Therapy Diet Recommendation: no restrictions on diet Diet Texture: Regular Texture Diet Wound Care Instructions: change dressing if saturated, remove to shower and let water run over wound. Activity/Weight Bearing Restrictions: No bending, twistint, lifting>15lbs - Follow Up Care Current Providers and Referrals: MAGDALENO JAMISON [Primary Care Provider] -
--- NOTE | 2017-05-26 14:21 | ASDISCHSUM ---
Discharge Information Plan Status:SNF Medically Cleared to Leave:05/25/2017 Discharge Date:05/25/2017 CM D/C Disposition:Halfway Facility ADT D/C Disposition:Halfway Facility Projected Discharge Date:05/25/2017 11:00 AM Transportation at D/C:ALS/BLS Discharge Delay Reason: Follow-Up Date:05/25/2017 11:00 AM Discharge Slot: Final Diagnosis: Placement Information Referral Type:*Group Home/SNF Referral ID:[id number] Provider Name:[facility] Address 1:[address] Address 2: City:[place] Selection Factors: State:[place] Patient Contact Information Contact Name:ERENDIRA Relationship: Address:[address] Work Phone: [facility]:[place] Alternate Phone: State/Zip Code:[place] [address] Email: Financial Information Financial Class: Primary Plan Desc:MEDICARE INPATIENT Primary Plan Number:[id number] Secondary Plan Desc:[facility] Secondary Plan Number:[id number] Assessment Information [facility] CM Progress Note CM Note CM Note Notes: Patient is POD #1 L4-5 laminectomy and R sided JOSE EDUARDO. I met with patient, and daughter to discuss discharge planning. I explained options of homecare, SNF, and inpatient rehab. Patient is currently open to [facility], but it is unclear what services he gets from them. It sounds like it might be a social media manager. He is open to the idea of PT/OT, but it seems like his family might think that he needs rehab. Current PT/OT recs are SNF or inpatient rehab. I told patient and his family that we could continue to asses his needs, and I encouraged them to follow up with Dr Kessler who told them that patient would need "6 weeks of rehab," although it was unspecified what kind. Current Case Management d/c plan: TBD Date Signed: 05/23/2017 02:50 PM Electronically Signed By:Juana Chua RN [facility] CM Progress Note CM Note CM Note Notes: Per PT/OT, patient would benefit from SNF. I spoke to him about this, and he agrees, although he is reluctant because his daughter and grandchild are here visiting from [place] for the holidays. He wanted to speak with them this afternoon and then follow up with Case Management. In the meantime, we talked about SNFs and decided that I would send referrals to [facility]. These have been sent. Case Management will follow up with patient tomorrow. Current CM Discharge plan: SNF (facility TBD) Date Signed: 05/24/2017 04:11 PM Electronically Signed By:Juana Chua RN [facility] CM Progress Note CM Note CM Note Notes: Chart reviewed. Met with patient briefly as he had visitors. He states his preference of SNF would be [facility] (they have no male bed) and secondly [facility]. He states he has some reservations about other facilities but will have his and daughter fo see [facility]. Spoke to [facility] who confirms they have available bed and could take patient when medically cleared for discharge. CM to follow. Date Signed: 05/25/2017 10:20 AM Electronically Signed By:Argenis Macias RN Intervention Information
--- NOTE | 2017-06-01 06:41 | GOP ---
[f rep st] OPERATIVE REPORT DATE OF OPERATION: 05/22/2017 SURGEON: Gonzalo Kessler MD HIGH SCHOOL SPORTS COACH: Lele Lyn PA-C. ANESTHESIA: GETA. PREOPERATIVE DIAGNOSIS: Severe L4-5 spinal stenosis with a large right-sided disc herniation and sig nificant and debilitating and medically intractable right leg pain as a result in use of a walker rem aining for several months now. POSTOPERATIVE DIAGNOSIS: Severe L4-5 spinal stenosis with a large right-sided disc herniation and si gnificant and debilitating and medically intractable right leg pain as a result in use of a walker re maining for several months now. PROCEDURE PERFORMED: An open L4-5 laminectomy and a right-sided medial facetectomy and microdiskecto my with use of neuro monitoring and use of fluoroscopy less 1 hour physician time. FINDINGS: Well decompressed thecal sac and right descending L5 nerve very visible and decompressed a t the end of the case. SPECIMENS: Removed: None. ESTIMATED BLOOD LOSS: 100 cc. INDICATIONS: The patient is a patient of mine who I have known for some time now on an outpatient ba [facility]. 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 I saw him in ur gent fashion on outpatient basis based on the symptoms and it has taken us a great long while to get him into the operating room. We did try nonsurgical strategies for a significant period of time, but he continued to decline. He was urged by his physical therapist to have surgery. He sought a 2nd o mihcelle and that surgeon also agreed on surgery, this was my partner Dr. Mazin Cohn, and the patient c ontinued to deliberate and weigh his options despite the fact that I was urging him to have surgery a s he was using a walker and several months prior he had been normal for a man his age. I also called his foot doctor and got cardiac clearance. His foot doctor also urged him to have surgery. Ultim ately with the help of his daughter we got him on board and met with him several more times and discu ssed the risks and benefits and alternatives of surgery and all points, signed informed consent prior to the procedure. DESCRIPTION OF PROCEDURE: The patient was brought to the operating room and a sign-in was performed. He was given 2 g of IV Ancef to prevent postoperative infection. He was smoothly induced under gen eral anesthesia, intubated without difficulty. Appropriate IV access was obtained. A Penaloza catheter was placed. SCDs were placed to prevent postoperative DVT. The patient was turned prone onto the W ilson frame which was cranked for maximal kyphosis, his pressure points were padded well. His low ba ck was washed with chlorhexidine shampoo and rubbing alcohol, which was allowed to dry. A midline in cision was planned and his low back was sterilized with ChloraPrep solution and then sterile field wi th blue towels, and Ioban and sterile surgical drapes were created. Prior to beginning procedure a t mayur-out was performed, in which all members of surgery, anesthesia, nursing, went over the necessary checklist and agreed to proceed as one. Fluoro was draped sterilely and brought into the field. We used a spinal needle to localize the L4-5 level. I made a midline incision with a #10 scalpel and us ed Bovie electrocautery to split the adipose tissue, lumbodorsal fascia and paraspinal musculature do wn to the spinous process of L4 and swept the paraspinal musculature off the L4 lamina bilaterally, u ntil we arrived at the L4-5 joints bilaterally. We were careful not to disrupt these. We exposed a little bit of the superior part of the L5 spinous process and some of the superior part of the pars a nd lamina here as well. We brought fluoro back in the field and correlated with our imaging to ensur e that we had exposed enough tissues to have an adequate decompression. A Leksell rongeur was used t o remove the interspinous ligament between L4-5, most of the spinous process of L4, and just a bit of the superior spinous process of L5. I then used a high-speed drill with a matchstick bur to complet e the laminectomy at L4-5, all the way out to the facet capsules. We then used blunt dissection to d issect the ligamentum flavum off both the dura and resected this with Kerrison rongeur punches bilate rally in the central canal and undercut the ligament in the lateral recesses as well. Once we had pe rformed this portion of our decompression, I performed a very mild right-sided medial facetectomy at L4-5 and we then retracted the dura over with a nerve root retractor and found a large disc bulge wit h an annular tear and got out some nice disk fragments there, performing an adequate decompression vi a the diskectomy. The L5 descending nerve on the right was completely free at this point in time. I probed around with a ball-tip probe underneath the dura, along our decompression, to ensure we did n ot miss any free fragments. Things seemed to be in good order. There were no neuro monitoring dowell es. I obtained hemostasis and irrigated out the operative bed with copious antibiotic solution. We placed a #7 SJ drain in the operative bed and closed the lumbodorsal fascia with 0 Vicryl suture. Beyer lf plain Marcaine was used to provide postoperative analgesia. We irrigated out the suprafascial com partment. I closed the dermis with inverted 2-0 pop-off Vicryl suture and skin edges approximated we ll. Skin was cleaned with a wet and dry sponge. A layer of Dermabond was applied. Once this dried, sterile dressings were placed. The drainage tube was secured with a stitch and hooked up to a bulb to full compression. The patient was returned from prone to supine position on the gurney, reversed from anesthesia and extubated without difficulty. All counts were correct. There were no immediate surgical or anesthetic complications. There were no neuro monitoring changes during the case. I was there for the entirety of the procedure. The patient was taken to the recovery area and was found t o be in stable medical and neurologic condition. I updated his family personally regarding case and they were very pleased with the care given to their loved one. Standard orders were given him to go to the floor postoperatively. COMPLICATIONS: None. IMPLANTS: None. /[id number]/MODL
== END 2017-05-26 15:08 | DRG 520 ==
LOC: F3N 10:10 → OBSVTOIN 05-23 14:45
PROVIDERS: ADMIT Neurological Surgery; ATTEND Neurological Surgery
DX: M51.26 Other intervertebral disc displacement, lumbar region (principal); M47.26 Other spondylosis with radiculopathy, lumbar region; M48.061 Spinal stenosis, lumbar region without neurogenic claudication; M43.17 Spondylolisthesis, lumbosacral region; I25.10 Atherosclerotic heart disease of native coronary artery without angina pectoris; Z95.0 Presence of cardiac pacemaker
CPT/HCPCS: 97116-GP; 97161-GP; 97166-GO; 97535-GO; G8978-GP-CJ; G8979-GP-CI; G8987-GO-CL; G8988-GO-CI; J0171; J0690; J1100; J1650; J1885; J2370; J2405; J2704; J3010

== ENCOUNTER → 2017-06-22 | Outpatient (CLI) | payer OTHER | LOC: FIMAGING 08:00 | PROVIDERS: ATTEND Family Medicine | DX: R10.9 Unspecified abdominal pain (principal); I71.4 Abdominal aortic aneurysm, without rupture; K82.4 Cholesterolosis of gallbladder; N28.1 Cyst of kidney, acquired ==

== ENCOUNTER → 2017-07-12 | Outpatient (CLI) | payer OTHER ==
[~2017-07-12] MED LIST changes: -ACETAMINOPHEN 500 MG TAB PO ONE; +IOPAMIDOL (ISOVUE 370) 100 ML BTL IV ONE; +LIDOCAINE 1% 300 MG/30 ML SDV ONE; -PREGABALIN 75 MG CAP PO ONE; -ceFAZolin 2 GM/DEXTROSE 100 ML IV ONE
== END ==
LOC: FIMAGING 14:50
PROVIDERS: ATTEND Family Medicine
DX: S46.011A Strain of muscle(s) and tendon(s) of the rotator cuff of right shoulder, initial encounter (principal); Z95.0 Presence of cardiac pacemaker
CPT/HCPCS: 73040; 73201; Q9967

== ENCOUNTER 2017-07-31 15:48 | Emergency (ER) | payer OTHER ==
[2017-07-31 15:55] VITALS: TEMP 97.3
[2017-07-31] MEDS ORDERED: NS 1,000 ML IV ONE (16:14)
--- NOTE | 2017-07-31 16:20 | CPEKG ---
Heart Rate: 72 RR Interval: 833 P-R Interval: 164 QRSD Interval: 88 QT Interval: 412 QTC Interval: 451 QRS Mccausland: -50 T Wave Mccausland: 41 EKG Severity - ABNORMAL ECG - EKG Impression: ATRIAL-PACED RHYTHM EKG Impression: LEFT ANTERIOR FASCICULAR BLOCK Electronically Signed By: Amadou Sanches 31-Jul-2017 16:33:06
[2017-07-31 16:21] VITALS: RESP 16
[2017-07-31 16:22] LABS: PLATELET COUNT 233 10^3/uL (150-400)
[2017-07-31 16:31] LABS: INR 0.97 (0.83-1.16); PROTIME(PATIENT) 13.1 SEC (12.0-15.0)
--- NOTE | 2017-07-31 16:33 | EDPHY ---
H & P Stated Complaint: epigastric pain to back/taking advil/hx pacemaker Time Seen by Provider: 07/31/17 16:06 HPI/ROS: CHIEF COMPLAINT: Epigastric pain HISTORY OF PRESENT ILLNESS: Patient is a 77-year-old man who comes to the emergency department complaining of epigastric pain that began abruptly 2 hr ago and intensified dramatically over about 15 min. He states that it radiated up to his chest and back. He was not diaphoretic. He denies shortness of breath or lightheadedness. No nausea vomiting. He does not have any history of abdominal surgery. He did have a lumbar laminectomy 3 months ago. No bowel or bladder abnormalities. No fever. No leg pain or swelling. REVIEW OF SYSTEMS: Constitutional: denies: chills, fever, recent illness, recent injury EENTM: denies: blurred vision, double vision, nose congestion Respiratory: denies: cough, shortness of breath Cardiac: See HPI Gastrointestinal/Abdominal: See HPI Genitourinary: denies: dysuria, frequency, hematuria, pain Musculoskeletal: denies: joint pain, muscle pain Skin: denies: lesions, rash, jaundice, bruising Neurological: denies: headache, numbness, paresthesia, tingling, dizziness, weakness Hematologic/Lymphatic: denies: blood clots, easy bleeding, easy bruising Immunologic/allergic: denies: HIV/AIDS, transplant EXAM: GENERAL: Well-appearing, well-nourished and in no acute distress. HEAD: Atraumatic, normocephalic. EYES: Pupils equal round and reactive to light, extraocular movements intact, sclera anicteric, conjunctiva are normal. ENT: TMs normal, nares patent, oropharynx clear without exudates. Moist mucous membranes. NECK: Normal range of motion, supple without lymphadenopathy or JVD. LUNGS: Breath sounds clear to auscultation bilaterally and equal. No wheezes rales or rhonchi. HEART: Regular rate and rhythm without murmurs, rubs or gallops. ABDOMEN: Soft, nontender, normoactive bowel sounds. No guarding, no rebound. No masses appreciated. BACK: No CVA tenderness, no spinal tenderness, step-offs or deformities EXTREMITIES: Normal range of motion, no pitting or edema. No clubbing or cyanosis. NEUROLOGICAL: Cranial nerves II through XII grossly intact. Normal speech, normal gait. 5/5 strength, normal movement in all extremities, normal sensation PSYCH: Normal mood, normal affect. SKIN: Warm, dry, normal turgor, no visible rashes or lesions. 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 - Family History Significant Family History: No pertinent family hx - Social History Smoking Status: Never smoked Alcohol Use: Sober Drug Use: None Constitutional: Initial Vital Signs Temperature (C) 36.3 C 07/31/17 15:52 Heart Rate 63 07/31/17 15:52 Respiratory Rate 18 07/31/17 15:52 Blood Pressure 183/112 H 07/31/17 15:52 O2 Sat (%) 96 07/31/17 15:52 O2 Delivery Mode Room Air Allergies/Adverse Reactions: erythromycin base [Erythromycin Base] Allergy (Severe, Verified 07/31/17 15:49) Swelling/neck,face,throat hydrocodone bitartrate [From Vicodin] Allergy (Severe, Verified 07/31/17 15:49) PASS OUT nitroglycerin Allergy (Severe, Verified 07/31/17 15:49) Anaphylaxis gabapentin Allergy (Intermediate, Verified 07/31/17 15:49) Other-Enter Comments latex [Latex] Allergy (Intermediate, Verified 07/31/17 15:49) Rash oxycodone [From Percocet] Allergy (Intermediate, Verified 07/31/17 15:49) Other-Enter Comments Wrehyag-Sse-Tnd Reductase Inhibitor Allergy (Intermediate, Verified 07/31/17 15: 49) Other-Enter Comments tramadol Allergy (Mild, Verified 07/31/17 15:49) Vomiting Home Medications: Medication Instructions Recorded Ibuprofen [Motrin (*)] 200 mg PO Q4-6PRN PRN 05/08/17 Diazepam [Valium 5 MG (*)] 2.5 - 5 mg PO Q6HRS PRN tab 05/26/17 Famotidine [Pepcid 20 MG (OTC)] 20 mg PO BID #30 tab 07/31/17 Medical Decision Making - Diagnostics EKG Interpretation: An EKG obtained and was read and documented in trace view. Please see trace view for full reading and report. Atrial paced rhythm, no acute ischemic changes . Unchanged from previous Imaging: Discussed imaging studies w/ calliope player Radiologist ED Course/Re-evaluation: The patient feels much better. We discussed his CT the lab and test results. He is relieved. I offered repeat troponin and continued observation versus admission but he declines. He feels that his symptoms are likely due to gastritis versus an ulcer. He states that he takes 10-12 ibuprofen a day for his chronic shoulder pain. I agree that this is a likely cause. I will start him on antacid. We discussed indications for returning. I encouraged him to take less ibuprofen and we discussed alternate this. He has Valium and Vicodin and Tylenol at home that he can take. The patient did feel much better after GI cocktail. Differential Diagnosis: Partial list of the Differential diagnosis considered include but were not limited to; gastritis, peptic ulcer disease, acute coronary disease, dissection and although unlikely based on the history and physical exam, I also considered PE, pneumonia, pneumothorax. I discussed these differential diagnoses and the plan with the patient as well as the usual and expected course. The patient understands that the diagnosis is provisional and that in medicine we are not always correct and that further workup is often warranted. Usual and customary warnings were given. All of the patient's questions were answered. The patient was instructed to return to the emergency department should the symptoms at all worsen or return, otherwise to followup with the physician as we discussed. - Data Points Laboratory Results: Laboratory Results 07/31/17 15:50 07/31/17 15:50 Medications Given: Discontinued Medications Al Hydroxide/Mg Hydroxide (Maalox Susp) 30 ml PO ONCE ONE Stop: 07/31/17 17:55 Last Admin: 07/31/17 18:00 Dose: 30 ml Hyoscyamine Sulfate (Levsin, Hyomax-Sl) 0.25 mg PO ONCE ONE Stop: 07/31/17 17:55 Last Admin: 07/31/17 18:00 Dose: 0.25 mg Sodium Chloride (Ns) 1,000 mls @ 0 mls/hr IV EDNOW ONE; Wide Open PRN Reason: Protocol Stop: 07/31/17 16:15 Last Admin: 07/31/17 16:19 Dose: 1,000 mls Lidocaine (Lidocaine 2% Viscous) 15 ml PO ONCE ONE Stop: 07/31/17 17:55 Last Admin: 07/31/17 18:00 Dose: 15 ml Departure - Departure Disposition: Home, Routine, Self-Care Clinical Impression: Epigastric pain Condition: Fair Instructions: Epigastric Pain (ED) Referrals: MAGDALENO JAMISON [Primary Care Provider] - 1-2 days without fail Jf Linares MD [Medical Doctor] - As per Instructions Prescriptions: Famotidine [Pepcid 20 MG (OTC)] 20 mg PO BID #30 tab
[2017-07-31] MEDS ORDERED: IOPAMIDOL (ISOVUE 370) 100 ML BTL IV ONE (16:41)
[2017-07-31] MEDS ORDERED: LIDOCAINE 2% VISCOUS 15 ML UDCUP PO ONE (17:54)
[2017-07-31] MEDS ORDERED: MAG HYDROX/AL HYDROX/SIMETH 30 ML UDCUP PO ONE (17:54)
[2017-07-31] MEDS ORDERED: HYOSCYAMINE SULFATE 0.125 MG TAB PO ONE (17:54)
[2017-07-31 18:09] VITALS: BP 168/105; PULSE 64; O2SAT 95
== END 2017-07-31 18:11 | disposition home or self-care (01) ==
DX: R10.13 Epigastric pain (principal); E86.9 Volume depletion, unspecified; Z95.0 Presence of cardiac pacemaker; Z95.5 Presence of coronary angioplasty implant and graft; Z91.040 Latex allergy status
CPT/HCPCS: 71275; 93005; 99285; Q9967

== ENCOUNTER → 2018-04-30 | Outpatient (CLI) | payer OTHER ==
[~2018-04-30] MED LIST changes: -LIDOCAINE 1% 300 MG/30 ML SDV ONE
== END ==
LOC: FIMAGING 14:17
PROVIDERS: ATTEND Internal Medicine
DX: R07.9 Chest pain, unspecified (principal); M54.9 Dorsalgia, unspecified; I25.119 Atherosclerotic heart disease of native coronary artery with unspecified angina pectoris
CPT/HCPCS: 71275; Q9967; 82565-PO

== ENCOUNTER → 2018-05-10 | Outpatient (CLI) | payer OTHER | LOC: FIMAGING 14:07 | PROVIDERS: ATTEND Physician Assistant Surgical | DX: M43.16 Spondylolisthesis, lumbar region (principal); M41.85 Other forms of scoliosis, thoracolumbar region; M51.14 Intervertebral disc disorders with radiculopathy, thoracic region; I70.0 Atherosclerosis of aorta; Z95.0 Presence of cardiac pacemaker ==